=== PATIENT | male | born 1990 | race Caucasian/White ===

== ENCOUNTER 2018-01-24 16:47 | Emergency (ER) | payer OTHER ==
[~2018-01-24] VITALS: Ht 177.8 cm; Wt 77.1 kg
[~2018-01-24 16:47] MED LIST: Bactrim Ds Tab1 EACH PO; CEPH500 PO; Cleocin HCl150 MG PO; Cleocin HCl300 MG PO; HYDACE5 PO; IBUP600 PO; IBUP800 PO; INDO50 PO; Naprosyn500 MG PO; OXYACE5T PO; OXYACE7.5T PO; Percocet 5-3251 EACH PO; Permethrin60 GM TP; SULTRIDS PO; SULTRISS PO; Voltaren100 GM TOP
== END 2018-01-24 17:58 ==
LOC: ER 16:47
DX: R29.898 Other symptoms and signs involving the musculoskeletal system (principal); T43.625A Adverse effect of amphetamines, initial encounter; T50.995A Adverse effect of other drugs, medicaments and biological substances, initial encounter
CPT/HCPCS: 93005; 93010; 99283

== ENCOUNTER 2020-01-23 12:00 | Inpatient (IN) | payer OTHER ==
[~2020-01-23] VITALS: Ht 177.8 cm; Wt 84.2 kg
[2020-01-23 12:40] LABS: BASOPHILS ABSOLUTE AUTO 0.02 K/mm3 (0.00-0.23); BASOPHILS PERCENT AUTO 0 % (0-2); EOSINOPHILS ABSOLUTE AUTO 0.03 K/mm3 (0.00-0.68); EOSINOPHILS PERCENT AUTO 0 % (0-6); Hematocrit 41.1 % (37.0-53.0); Hemoglobin 13.1 g/dL (13.5-17.5); IMMATURE GRAN ABSOLUTE AUTO 0.08 K/mm3 (0.00-0.10); IMMATURE GRAN PERCENT AUTO 1 % (0-1); LYMPHOCYTES ABSOLUTE AUTO 0.59 K/mm3 (0.84-5.20); LYMPHOCYTES PERCENT AUTO 4 % (21-46); MONOCYTES ABSOLUTE AUTO 0.85 K/mm3 (0.16-1.47); MONOCYTES PERCENT AUTO 5 % (4-13); Mean Corpuscular HGB 27.8 pg (26.0-34.0); Mean Corpuscular HGB Conc 31.9 g/dL (31.5-36.5); Mean Corpuscular Volume 87 fL (80-100); NEUTROPHILS ABSOLUTE AUTO 14.42 K/mm3 (1.96-9.15); NEUTROPHILS PERCENT AUTO 90 % (41-73); Platelet Count 180 K/mm3 (150-400); RDW Coefficient Variation 13.3 % (11.7-14.2); RDW Standard Deviation 42.5 fL (35.1-46.3); Red Blood Cell Count 4.72 M/mm3 (4.30-5.90); White Blood Cell Count 15.99 K/mm3 (4.00-11.30)
[2020-01-23 12:55] LABS: Alanine Aminotransfer (ALT/SGP 46 U/L (12-78); Albumin, Blood 3.6 g/dL (3.4-5.0); Albumin/Globulin Ratio 0.8 (0.8-1.8); Alk Phos 99 U/L (50-136); Anion Gap 4 mmol/L (6-16); Aspartate Aminotrans (AST/SGOT 35 U/L (12-37); Bilirubin, Total 0.7 mg/dL (0.1-1.0); Blood Urea Nitrogen 11 mg/dL (8-24); Bun/Creatinine Ratio 15.2 (12.0-20.0); CO2, Blood 24 mmol/L (21-32); Calcium, Blood 8.8 mg/dL (8.5-10.1); Chloride, Blood 103 mmol/L (98-108); Creatinine, Blood 0.73 mg/dL (0.60-1.20); Globulin, Blood 4.4 g/dL (2.2-4.0); Glomerular Filtration Rate >60 (60-); Glucose, Blood 107 mg/dL (70-99); Potassium, Blood 4.2 mmol/L (3.5-5.5); Sodium, Blood 131 mmol/L (136-145)
[2020-01-23] MEDS ORDERED: IBUP200 PO (18:16)
--- NOTE | 2020-01-23 19:24 | NUR ---
PT ARRIVED TO ROOM AT 1810. ADMISSION ASSESSMENT COMPLETED THOUGH ADMISSION HISTORY STILL NEEDS TO BE COMPLETED, ALONG WITH BLOOD CONSENT, INTERNAL AUDIT DIRECTOR NURSE AWARE. PT ORIENTED TO ROOM, EDUCATED ON PT RIGHTS AND RESPONSIBILITIES AND EDUCATED ON RULES FAR OUTSIDE PRIVLEDGES. PT ALSO INSTRUCTED TO NOT TAKE HOME MEDICATIONS OR SUBSTANCES WHILE A PATIENT. PT AGREES. BED IN LOW POSITION, CALL LIGHT WITHIN REACH. REPORT GIVEN TO INTERNAL AUDIT DIRECTOR NURSE WHO ASSUMES CARE AT THIS TIME. IV PATENT AND INFUSING PER EMAR.
--- NOTE | 2020-01-23 23:58 | NUR ---
1924: assumed care of patient, patient was sleeping at the time and during report at bedside. pt resting quietly in no apparent distress. bed low and locked and call louie within reach. 2030: pt found to have a temp 100.8. turned down temp in the room. Pt refuses Tylenol Suppository. Shift assessment completed. Marked reddened area across foot and calf. Also noted scabs on lfa with induration and pus. similar lesions on anterior calf, Top of L foot at base of third toe. back of Left shoulder. Patient refuses to let me look at the wound near his groin. will try again later.
== END 2020-01-23 23:40 | disposition left against medical advice (07) | DRG 872 ==
LOC: ER 12:00 → MEDS 16:12
PROVIDERS: Physician Assistant; ADMIT Hospitalist
DX: A41.9 Sepsis, unspecified organism (principal); L03.116 Cellulitis of left lower limb; F11.10 Opioid abuse, uncomplicated; Z53.29 Procedure and treatment not carried out because of patient's decision for other reasons
CPT/HCPCS: 36415; 80053; 83605; 85025; 96365; 96366; 96367; 99284-25; A9270; J0690; J1885; J3370; J7030

== ENCOUNTER 2020-10-31 09:05 | Emergency (ER) | payer OTHER ==
[~2020-10-31] VITALS: Ht 177.8 cm; Wt 81.7 kg
[~2020-10-31 09:05] MED LIST changes: +IBUP200 PO
[2020-10-31 11:13] LABS: BASOPHILS ABSOLUTE AUTO 0.02 K/mm3 (0.00-0.23); BASOPHILS PERCENT AUTO 0 % (0-2); EOSINOPHILS ABSOLUTE AUTO 0.19 K/mm3 (0.00-0.68); EOSINOPHILS PERCENT AUTO 2 % (0-6); Hemoglobin 10.8 g/dL (13.5-17.5); IMMATURE GRAN ABSOLUTE AUTO 0.03 K/mm3 (0.00-0.10); IMMATURE GRAN PERCENT AUTO 0 % (0-1); LYMPHOCYTES ABSOLUTE AUTO 1.14 K/mm3 (0.84-5.20); LYMPHOCYTES PERCENT AUTO 14 % (21-46); MONOCYTES ABSOLUTE AUTO 0.63 K/mm3 (0.16-1.47); MONOCYTES PERCENT AUTO 8 % (4-13); Mean Corpuscular HGB 27.3 pg (26.0-34.0); Mean Corpuscular HGB Conc 32.7 g/dL (31.5-36.5); Mean Corpuscular Volume 84 fL (80-100); Mean Platelet Volume 9.8 fL (9.1-12.4); NEUTROPHILS ABSOLUTE AUTO 6.27 K/mm3 (1.96-9.15); NEUTROPHILS PERCENT AUTO 76 % (41-73); Platelet Count 273 K/mm3 (150-400); RDW Coefficient Variation 12.4 % (11.7-14.2); RDW Standard Deviation 37.8 fL (35.1-46.3); Red Blood Cell Count 3.95 M/mm3 (4.30-5.90); White Blood Cell Count 8.28 K/mm3 (4.00-11.30)
[2020-10-31 11:27] LABS: Alanine Aminotransfer (ALT/SGP 27 U/L (12-78); Albumin, Blood 2.9 g/dL (3.4-5.0); Albumin/Globulin Ratio 0.6 (0.8-1.8); Alk Phos 93 U/L (50-136); Anion Gap 3 mmol/L (6-16); Aspartate Aminotrans (AST/SGOT 13 U/L (12-37); Bilirubin, Total 0.4 mg/dL (0.1-1.0); Blood Urea Nitrogen 15 mg/dL (8-24); Bun/Creatinine Ratio 16.5 (12.0-20.0); CO2, Blood 29 mmol/L (21-32); Calcium, Blood 8.5 mg/dL (8.5-10.1); Chloride, Blood 108 mmol/L (98-108); Creatinine, Blood 0.91 mg/dL (0.60-1.20); Globulin, Blood 4.7 g/dL (2.2-4.0); Glomerular Filtration Rate >60 (60-); Glucose, Blood 97 mg/dL (70-99); Potassium, Blood 4.2 mmol/L (3.5-5.5); Sodium, Blood 140 mmol/L (136-145); Total Protein, Blood 7.6 g/dL (6.4-8.2)
[2020-10-31 13:47] LABS: Source, Urine Voided
[2020-10-31 13:52] LABS: Appearance, Urine Clear (Clear); Bilirubin, Urine Neg (Neg); Blood, Urine 3+ (Neg); Color, Urine Yellow (P-Yellow); Glucose Qualitative, Urine Neg (Neg); Ketones, Urine Neg (Neg); Leukocyte Esterase, Urine 1+ (Neg); Nitrite, Urine Neg (Neg); Protein, Urine Neg (Neg); Urobilinogen, Urine NORM (Normal)
[2020-10-31 14:06] LABS: Bacteria Few /hpf; Red Blood Cells, Urine 25-50 /hpf (0-2); Squamous Epithelial Cells Not Seen /hpf (Few)
[2020-10-31] MEDS ORDERED: IBUP400 PO (15:44)
== END 2020-10-31 15:55 | disposition home or self-care (01) ==
LOC: ER 09:05
PROVIDERS: Emergency Medicine
DX: M54.5 Low back pain (principal)
CPT/HCPCS: 36415; 72158; 80053; 81001; 83605; 85025; 85651; 87086; 96372-59; 99284-25; A9579; J1885

== ENCOUNTER 2020-11-10 17:38 | Inpatient (IN) | payer OTHER ==
[~2020-11-10] VITALS: Ht 177.8 cm; Wt 88.4 kg
[~2020-11-10 17:38] MED LIST changes: +IBUP400 PO
[2020-11-10 18:59] LABS: Hemoglobin 9.4 g/dL (13.5-17.5); Mean Corpuscular HGB 26.2 pg (26.0-34.0); Mean Corpuscular HGB Conc 32.4 g/dL (31.5-36.5); Mean Corpuscular Volume 81 fL (80-100); Mean Platelet Volume 10.6 fL (9.1-12.4); Platelet Count 101 K/mm3 (150-400); RDW Coefficient Variation 13.3 % (11.7-14.2); RDW Standard Deviation 39.5 fL (35.1-46.3); Red Blood Cell Count 3.59 M/mm3 (4.30-5.90); White Blood Cell Count 13.16 K/mm3 (4.00-11.30)
[2020-11-10 19:19] LABS: BAND PERCENT MAN 7 % (0-8); BASOPHILS PERCENT MAN 0 % (0-2); EOSINOPHILS PERCENT MAN 0 % (0-6); LYMPHOCYTES ABSOLUTE MAN 0.26 K/mm3 (0.84-5.20); LYMPHOCYTES PERCENT MAN 2 % (21-46); MONOCYTES ABSOLUTE MAN 0.13 K/mm3 (0.16-1.47); MONOCYTES PERCENT MAN 1 % (4-13); NEUTROPHILS ABSOLUTE MAN 12.76 K/mm3 (1.96-9.15); SEG NEUTROPHILS PERCENT MAN 90 % (41-73); TOTAL CELLS COUNTED 100
[2020-11-10 19:22] LABS: Alanine Aminotransfer (ALT/SGP 28 U/L (12-78); Albumin, Blood 1.8 g/dL (3.4-5.0); Albumin/Globulin Ratio 0.4 (0.8-1.8); Alk Phos 265 U/L (50-136); Anion Gap 9 mmol/L (6-16); Aspartate Aminotrans (AST/SGOT 30 U/L (12-37); Bilirubin, Total 2.2 mg/dL (0.1-1.0); Blood Urea Nitrogen 28 mg/dL (8-24); Bun/Creatinine Ratio 23.9 (12.0-20.0); CO2, Blood 26 mmol/L (21-32); Calcium, Blood 7.9 mg/dL (8.5-10.1); Chloride, Blood 96 mmol/L (98-108); Creatinine, Blood 1.17 mg/dL (0.60-1.20); Globulin, Blood 4.1 g/dL (2.2-4.0); Glomerular Filtration Rate >60 (60-); Glucose, Blood 115 mg/dL (70-99); Potassium, Blood 2.8 mmol/L (3.5-5.5); Sodium, Blood 131 mmol/L (136-145); Total Protein, Blood 5.9 g/dL (6.4-8.2); Troponin I <0.015 ng/mL (0.000-0.040)
[2020-11-10 19:25] LABS: CPK Creatine Kinase 36 U/L (39-308)
[2020-11-10 19:35] LABS: Influenza A, PCR Negative (NEGATIVE); Influenza B, PCR Negative (NEGATIVE); Resp Syncytial Virus, PCR Negative (NEGATIVE); SARS-Cov-2 (COVID-19) PCR, MMC Negative (NEGATIVE)
[2020-11-10 19:53] LABS: Creatine Kinase MB <1.0 ng/mL (0.0-3.6); Creatine Kinase MB Index Unable to Calculate (0.0-4.0)
[2020-11-10 20:01] LABS: C-REACTIVE PROTEIN, EXT RANGE >19.000 mg/dL (0.000-0.300)
[2020-11-10 20:15] LABS: Source, Urine Clean Catch
[2020-11-10 20:22] LABS: Appearance, Urine Hazy (Clear); Blood, Urine 1+ (Neg); Color, Urine Yellow (P-Yellow); Glucose Qualitative, Urine Neg (Neg); Ketones, Urine Neg (Neg); Leukocyte Esterase, Urine 3+ (Neg); Nitrite, Urine Neg (Neg); Protein, Urine 2+ (Neg); Urobilinogen, Urine 4+ (Normal)
[2020-11-10 20:43] LABS: Bilirubin, Urine 2+ (Neg)
[2020-11-10 20:48] LABS: White Blood Cells, Urine 25-50 /hpf (0-5)
[2020-11-10 20:49] LABS: Bacteria Mod /hpf; Squamous Epithelial Cells Few /hpf (Few)
--- NOTE | 2020-11-10 21:15 | NUR ---
PT ARRIVES TO ICU 13 FROM ED VIA GURNEY. PT ALERT AND ORIENTED. PT PALE AND DIAPHORETIC. PT HAS 20G TO LEFT FA, SL, SITE WNL, DRESSING C/D/I. PT MOVES ALL EXT INDEPENDENTLY, ABLE TO AMB FROM GURNEY TO BED WITHOUT ISSUE. PT PLACED ON CARDIAC/SAT AND NIBP MONITORING. PLAN FOR RUIZ HICKS TO PLACE POWERGLIDE. PT ABD SOFT AND NONTENDER. PT DENIES BM FOR PAST 2 DAYS, STATES ITS NORMAL. PT LUNG SOUNDS CLEAR BUT DIMINISHED, O2 SAT ON RA >92%. HR ST AT 108. PT ORIENTED TO ROOM. CALL LIGHT IN REACH. SEE ADMIT ASSESSMENT.
--- NOTE | 2020-11-11 00:30 | NUR ---
ASSISTED PT TO COMMODE IN ROOM TO HAVE A BOWEL MOVEMENT. PT AMB WITH MINIMAL ASSISTANCE. WHEN PT FINISHED HE WAS ASSISTED BACK TO BED. PT WAS CLUTCHING AN EYEGLASS CASE. THIS RN ASKED IF HE WANTED IT PUT UP WITH OTHER BELONGINGS. PT STATES "I DONT WEAR GLASSES". THIS RN ASKED PT WHAT WAS IN THE EYEGLASS CASE, PT DIDNT ANSWER. PT PALE AND DIAPHORETIC. THIS RN ASKED PT AGAIN, PT STATES "IM NOT GOING TO LIE TO YOU. ITS HEROIN FLUSH". 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 DRUG PARAPHERNALIA REMOVED FROM ROOM. CHARGE NURSE MADE AWARE, SUPERVISOR FUSING ROOM AWARE. SECURITY CALLED TO DISPOSE OF ITEMS. THIS RN SPOKE AT LENGTH WITH PT RE RISK OF BEHAVIOR. PT SEEMS TO UNDERSTAND. PT STATES HE IS CONCERNED ABOUT GOING THROUGH WITHDRAWAL. PT STATES THAT LAST TIME HE WAS IN THE HOSPITAL IT WAS REALLY BAD AND HE LEFT AMA BECAUSE OF THE WITDRAWAL.
--- NOTE | 2020-11-11 00:50 | NUR ---
WENT INTO PT'S ROOM WITH TABLE AND DESK FINISHER. ASKED PT IF HE HAD ANY OTHER DRUGS ON HIM OR WITH HIM, PT STATED "NO". ASKED IF I COULD GO THRU HIS BELONGINGS, PT AGREED. WENT THRU PT'S BELONGINGS WITH NOTHING MORE FOUND. EXPLAINED TO PT THAT BECAUSE OF THIS BEHAVIOR, THAT HE WILL NO LONGER BE ALLOWED TO HAVE VISITORS. PT STATED THAT HE WILL HAVE TO SIGN HIMSELF OUT THEN BECAUSE HE DOES NOT WANT TO GO THRU WITHDRAWLS. I EXPLAINED TO HIM THAT HE'S VERY SICK AND NEEDS TO STAY AND THAT WE COULD HELP HIM SO HE DOESN'T GO THRU WITHDRAWLS. PT AGREED TO STAY.
--- NOTE | 2020-11-11 00:50 | NUR ---
DR CALLES AWARE OF SITUATION AND PT CONCERN FOR WITHDRAWAL. ORDERS RECEIVED FOR ATIVAN AND ZOFRAN.
[2020-11-11 04:14] LABS: Hematocrit 27.1 % (37.0-53.0); Hemoglobin 8.8 g/dL (13.5-17.5); Mean Corpuscular HGB 26.6 pg (26.0-34.0); Mean Corpuscular HGB Conc 32.5 g/dL (31.5-36.5); Mean Corpuscular Volume 82 fL (80-100); Mean Platelet Volume 11.2 fL (9.1-12.4); Platelet Count 67 K/mm3 (150-400); RDW Coefficient Variation 13.5 % (11.7-14.2); RDW Standard Deviation 40.8 fL (35.1-46.3); Red Blood Cell Count 3.31 M/mm3 (4.30-5.90); White Blood Cell Count 11.99 K/mm3 (4.00-11.30)
[2020-11-11 04:30] LABS: Alanine Aminotransfer (ALT/SGP 23 U/L (12-78); Albumin, Blood 1.7 g/dL (3.4-5.0); Albumin/Globulin Ratio 0.5 (0.8-1.8); Alk Phos 237 U/L (50-136); Anion Gap 6 mmol/L (6-16); Aspartate Aminotrans (AST/SGOT 29 U/L (12-37); Bilirubin, Total 2.6 mg/dL (0.1-1.0); Blood Urea Nitrogen 24 mg/dL (8-24); Bun/Creatinine Ratio 25.3 (12.0-20.0); CO2, Blood 27 mmol/L (21-32); Calcium, Blood 7.7 mg/dL (8.5-10.1); Chloride, Blood 106 mmol/L (98-108); Creatinine, Blood 0.95 mg/dL (0.60-1.20); Globulin, Blood 3.3 g/dL (2.2-4.0); Glomerular Filtration Rate >60 (60-); Glucose, Blood 100 mg/dL (70-99); Potassium, Blood 3.6 mmol/L (3.5-5.5); Sodium, Blood 139 mmol/L (136-145)
[2020-11-11 04:50] LABS: BAND PERCENT MAN 14 % (0-8); BASOPHILS PERCENT MAN 0 % (0-2); EOSINOPHILS PERCENT MAN 0 % (0-6); LYMPHOCYTES ABSOLUTE MAN 0.11 K/mm3 (0.84-5.20); LYMPHOCYTES PERCENT MAN 1 % (21-46); MONOCYTES ABSOLUTE MAN 0.59 K/mm3 (0.16-1.47); MONOCYTES PERCENT MAN 5 % (4-13); NEUTROPHILS ABSOLUTE MAN 11.27 K/mm3 (1.96-9.15); SEG NEUTROPHILS PERCENT MAN 80 % (41-73); TOTAL CELLS COUNTED 100
--- NOTE | 2020-11-11 08:09 | NUR ---
ASSUMED CARE BEDSIDE REPORT RECIEVED. PT IS LAYING IN BED. PT AWAKENS EASILY TO VERBAL STIMULI. PT IS ALERT AND ORIENTED. PT IS VERY ANXIOUS, BUT COOPERATIVE. PT COMPLAINS OF PAIN/FATIGUE THROUGHOUT. PT ON 2L O2 NC, PT WITH SHALLOW PANTING RESPIRATIONS. HR 130-150'S, BP STABLE. POWERGLIDE TO MUKESH C/D/I, NS INFUSING TKO WITH ZOSYN. DR JEFFRIES AT BEDSIDE TO SEE PT AT THIS TIME. DISCUSSED PLAN OF CARE AND MEDS. WILL CONTINUE TO MONITOR.
--- NOTE | 2020-11-11 09:06 | NUR ---
Stat echocardiogram performed and Dr. Segovia called prelim. result to Dr. Zhou.
[2020-11-11 09:35] LABS: Fibrinogen 355 mg/dL (170-430)
[2020-11-11 09:39] LABS: D-Dimer, Quantitative >35.20 mg/L FEU (0.00-0.52)
--- NOTE | 2020-11-11 12:30 | NUR ---
UPDATE PT ASSESSMENT REMAINS UNCHANGED AT THIS TIME. VITAL SIGNS STABLE. DR JEFFRIES CALLED TO INFORM OF TRANSFER AND ACCEPTING PHYSICAN AT [facility] IN [place]. PT UNABLE TO ACKNOWLEDGE OR CONSENT TO TRANSFER AT THIS TIME. PT MOTHER KHAI CALLED AND AGREES WITH TRANSFER. AWAITING BED ASSIGNMENT AT THIS TIME. WILL CONTINUE TO MONITOR.
--- NOTE | 2020-11-11 14:37 | NUR ---
TRANSFER REPORT CALLED TO YENY AT [facility]. ALL QUESTIONS ANSWERED. PT TAKEN TO [facility]. PT MOTHER TOOK ALL PT BELONGINGS. VITAL SIGNS STABLE. PT LEFT AT 1435.
== END 2020-11-11 14:35 | disposition short-term general hospital (02) | DRG 871 ==
LOC: ER 17:38 → ICUW 17:39
PROVIDERS: Emergency Medicine; Internal Medicine; ADMIT Internal Medicine
DX: A41.02 Sepsis due to Methicillin resistant Staphylococcus aureus (principal); J96.01 Acute respiratory failure with hypoxia; I26.90 Septic pulmonary embolism without acute cor pulmonale; D69.6 Thrombocytopenia, unspecified; E87.6 Hypokalemia; R82.81 Pyuria; E88.09 Other disorders of plasma-protein metabolism, not elsewhere classified; Z20.828 Contact with and (suspected) exposure to other viral communicable diseases; F11.10 Opioid abuse, uncomplicated; D63.8 Anemia in other chronic diseases classified elsewhere; I37.8 Other nonrheumatic pulmonary valve disorders
CPT/HCPCS: 0241U; 36415; 71045; 73030; 80053; 81001; 82550; 82553; 83605; 83735; 83880; 84484; 85025; 85379; 85384; 85651; 86140; 87040; 87077; 87086; 87147; 87186; 93005; 93010; 93306; 96365; 96367; 99285-25; A9270; C1751; G0378; J0456; J0696; J1650; J2060; J2405; J2543; J3010; J3370; J3480; J7030; J7050; J7120; P9046

== ENCOUNTER 2020-12-03 00:53 | Day surgery (SDC) | payer OTHER ==
[2020-12-04] MEDS ORDERED: DOCU100 PO (11:51)
[2020-12-04] MEDS ORDERED: CUBICIN500 MG IV (11:51)
[2020-12-04] MEDS ORDERED: ASCO500 PO (11:51)
[2020-12-04] MEDS ORDERED: THERA-D2000 UNIT PO (11:51)
[2020-12-04] MEDS ORDERED: FOLI400 PO (11:52)
[2020-12-04] MEDS ORDERED: GUANFACINE HCL2 MG PO (11:52)
[2020-12-04] MEDS ORDERED: MELA3 PO (11:52)
[2020-12-04] MEDS ORDERED: METH10 PO (11:53)
[2020-12-04] MEDS ORDERED: [UNRECOGNIZED DRUG - OTHER] PO (11:54)
[2020-12-04] MEDS ORDERED: TRAZ100 PO (11:54)
== END 2020-12-03 11:30 | disposition home or self-care (01) ==
LOC: ATC 00:53
DX: A41.02 Sepsis due to Methicillin resistant Staphylococcus aureus (principal); I33.0 Acute and subacute infective endocarditis; R65.20 Severe sepsis without septic shock; J96.01 Acute respiratory failure with hypoxia; D64.9 Anemia, unspecified; Z79.2 Long term (current) use of antibiotics; Z79.899 Other long term (current) drug therapy; Z20.822 Contact with and (suspected) exposure to COVID-19
CPT/HCPCS: J0878

== ENCOUNTER 2020-12-05 00:24 | Day surgery (SDC) | payer OTHER ==
[~2020-12-05 00:24] MED LIST changes: +ASCO500 PO; +CUBICIN500 MG IV; +DOCU100 PO; +FOLI400 PO; +GUANFACINE HCL2 MG PO; +MELA3 PO; +METH10 PO; +THERA-D2000 UNIT PO; +TRAZ100 PO; +[UNRECOGNIZED DRUG - OTHER] PO
== END 2020-12-05 10:47 | disposition home or self-care (01) ==
LOC: ATC 00:24
DX: A41.02 Sepsis due to Methicillin resistant Staphylococcus aureus (principal); I33.0 Acute and subacute infective endocarditis; R65.20 Severe sepsis without septic shock; J96.01 Acute respiratory failure with hypoxia; D64.9 Anemia, unspecified; Z79.2 Long term (current) use of antibiotics; Z79.899 Other long term (current) drug therapy; Z20.822 Contact with and (suspected) exposure to COVID-19
CPT/HCPCS: 96365; J0878

== ENCOUNTER 2020-12-06 00:22 | Day surgery (SDC) | payer OTHER | END 2020-12-06 09:47 | disposition home or self-care (01) | LOC: ATC 00:22 | DX: A41.02 Sepsis due to Methicillin resistant Staphylococcus aureus (principal); I33.0 Acute and subacute infective endocarditis; R65.20 Severe sepsis without septic shock; J96.90 Respiratory failure, unspecified, unspecified whether with hypoxia or hypercapnia; D64.9 Anemia, unspecified; B18.2 Chronic viral hepatitis C; F15.10 Other stimulant abuse, uncomplicated; F11.10 Opioid abuse, uncomplicated; Z20.822 Contact with and (suspected) exposure to COVID-19; Z79.2 Long term (current) use of antibiotics; Z79.899 Other long term (current) drug therapy | CPT/HCPCS: 96365; J0878 ==

== ENCOUNTER 2020-12-07 00:12 | Day surgery (SDC) | payer OTHER ==
--- NOTE | 2020-12-07 09:57 | NUR ---
DISCUSSED HIS COUGHING. PT STATES HE COUGHED UP SOME BLOOD STREAKED SPUTUM. PT STATES HE HAD HIS METHADONE THIS AM. WE DISCUSSED WHAT HIS ECHO SAID.
== END 2020-12-07 09:53 | disposition home or self-care (01) ==
LOC: ATC 00:12
DX: I33.0 Acute and subacute infective endocarditis (principal); B95.62 Methicillin resistant Staphylococcus aureus infection as the cause of diseases classified elsewhere; I37.1 Nonrheumatic pulmonary valve insufficiency; F15.10 Other stimulant abuse, uncomplicated; F11.10 Opioid abuse, uncomplicated; B18.2 Chronic viral hepatitis C
CPT/HCPCS: 96365; J0878

== ENCOUNTER 2020-12-08 00:07 | Day surgery (SDC) | payer OTHER ==
[2020-12-08 10:11] LABS: BASOPHILS ABSOLUTE AUTO 0.07 K/mm3 (0.00-0.23); BASOPHILS PERCENT AUTO 1 % (0-2); EOSINOPHILS ABSOLUTE AUTO 0.32 K/mm3 (0.00-0.68); EOSINOPHILS PERCENT AUTO 2 % (0-6); Hematocrit 28.8 % (37.0-53.0); Hemoglobin 8.7 g/dL (13.5-17.5); IMMATURE GRAN ABSOLUTE AUTO 0.15 K/mm3 (0.00-0.10); IMMATURE GRAN PERCENT AUTO 1 % (0-1); LYMPHOCYTES ABSOLUTE AUTO 1.63 K/mm3 (0.84-5.20); LYMPHOCYTES PERCENT AUTO 11 % (21-46); MONOCYTES ABSOLUTE AUTO 0.74 K/mm3 (0.16-1.47); MONOCYTES PERCENT AUTO 5 % (4-13); Mean Corpuscular HGB 25.4 pg (26.0-34.0); Mean Corpuscular HGB Conc 30.2 g/dL (31.5-36.5); Mean Corpuscular Volume 84 fL (80-100); Mean Platelet Volume 10.4 fL (9.1-12.4); NEUTROPHILS ABSOLUTE AUTO 11.98 K/mm3 (1.96-9.15); NEUTROPHILS PERCENT AUTO 81 % (41-73); Platelet Count 448 K/mm3 (150-400); RDW Standard Deviation 44.3 fL (35.1-46.3); Red Blood Cell Count 3.42 M/mm3 (4.30-5.90); White Blood Cell Count 14.89 K/mm3 (4.00-11.30)
[2020-12-08 10:30] LABS: Alanine Aminotransfer (ALT/SGP 70 U/L (12-78); Albumin, Blood 2.4 g/dL (3.4-5.0); Albumin/Globulin Ratio 0.4 (0.8-1.8); Alk Phos 257 U/L (50-136); Anion Gap 7 mmol/L (6-16); Aspartate Aminotrans (AST/SGOT 31 U/L (12-37); Bilirubin, Total 0.4 mg/dL (0.1-1.0); Blood Urea Nitrogen 10 mg/dL (8-24); Bun/Creatinine Ratio 11.4 (12.0-20.0); CO2, Blood 28 mmol/L (21-32); CPK Creatine Kinase 16 U/L (39-308); Calcium, Blood 8.8 mg/dL (8.5-10.1); Chloride, Blood 102 mmol/L (98-108); Creatinine, Blood 0.88 mg/dL (0.60-1.20); Globulin, Blood 6.7 g/dL (2.2-4.0); Glomerular Filtration Rate >60 (60-); Glucose, Blood 100 mg/dL (70-99); Potassium, Blood 4.2 mmol/L (3.5-5.5); Sodium, Blood 137 mmol/L (136-145); Total Protein, Blood 9.1 g/dL (6.4-8.2)
[2020-12-08 10:47] LABS: Creatine Kinase MB <1.0 ng/mL (0.0-3.6); Creatine Kinase MB Index Unable to Calculate (0.0-4.0)
--- NOTE | 2020-12-08 11:25 | NUR ---
Lab results from today faxed to Dr. Davis's office at [phone].
== END 2020-12-08 09:56 | disposition home or self-care (01) ==
LOC: ATC 00:07
PROVIDERS: Internal Medicine Infectious Disease
DX: I33.0 Acute and subacute infective endocarditis (principal); I76 Septic arterial embolism; A41.9 Sepsis, unspecified organism; R65.20 Severe sepsis without septic shock; J96.00 Acute respiratory failure, unspecified whether with hypoxia or hypercapnia; B19.20 Unspecified viral hepatitis C without hepatic coma; F15.10 Other stimulant abuse, uncomplicated
CPT/HCPCS: 80053; 82550; 82553; 85025; 85651; 96365; J0878

== ENCOUNTER 2020-12-09 01:46 | Day surgery (SDC) | payer OTHER ==
--- NOTE | 2020-12-09 13:28 | NUR ---
PT STS HE IS NOT FEELING WELL, ENCOURAGED PT TO GO TO ER IF HE CONTINUES TO FEEL POORLY, PT VERBALIZED THAT HE WOULD.
[2020-12-10] MEDS ORDERED: SULTRIDS PO (10:01)
[2020-12-10] MEDS ORDERED: TESSALON PERLE100 MG PO (10:02)
== END 2020-12-09 11:05 | disposition home or self-care (01) ==
LOC: ATC 01:46
DX: I33.0 Acute and subacute infective endocarditis (principal); I26.90 Septic pulmonary embolism without acute cor pulmonale; B95.62 Methicillin resistant Staphylococcus aureus infection as the cause of diseases classified elsewhere; B19.20 Unspecified viral hepatitis C without hepatic coma; D64.9 Anemia, unspecified; F11.10 Opioid abuse, uncomplicated; F15.10 Other stimulant abuse, uncomplicated
CPT/HCPCS: 96365; J0878

== ENCOUNTER 2020-12-10 00:26 | Day surgery (SDC) | payer OTHER ==
[2020-12-10] MEDS ORDERED: SULTRIDS PO (10:01)
[2020-12-10] MEDS ORDERED: TESSALON PERLE100 MG PO (10:02)
== END 2020-12-10 10:15 | disposition home or self-care (01) ==
LOC: ATC 00:26
DX: I33.0 Acute and subacute infective endocarditis (principal); B95.62 Methicillin resistant Staphylococcus aureus infection as the cause of diseases classified elsewhere; I37.1 Nonrheumatic pulmonary valve insufficiency
CPT/HCPCS: 96365; J0878

== ENCOUNTER 2020-12-11 01:24 | Day surgery (SDC) | payer OTHER ==
[~2020-12-11 01:24] MED LIST changes: +TESSALON PERLE100 MG PO
[2020-12-12] MEDS ORDERED: GUAI600T33 PO (10:30)
== END 2020-12-11 10:55 | disposition home or self-care (01) ==
LOC: ATC 01:24
DX: I33.0 Acute and subacute infective endocarditis (principal); B95.62 Methicillin resistant Staphylococcus aureus infection as the cause of diseases classified elsewhere; F15.10 Other stimulant abuse, uncomplicated; F11.10 Opioid abuse, uncomplicated; B19.20 Unspecified viral hepatitis C without hepatic coma
CPT/HCPCS: 96365; J0878

== ENCOUNTER 2020-12-12 00:12 | Day surgery (SDC) | payer OTHER ==
[2020-12-12] MEDS ORDERED: GUAI600T33 PO (10:30)
--- NOTE | 2020-12-12 10:38 | NUR ---
PT STATES HE HAS BEEN COUGHING UP DISCOLORED MUCOUS IN THE MORNING. PT IS CONCERNED HE NEEDS ABX LONGER THAN END DATE 12/25/20 BUT DOESN'T FOLLOW UP WITH CARDIOLOGY UNTIL JAN 03. ADVISED PT TO CALL PCP TODAY TO DISCUSS SPUTUM. PT GIVEN SPUTUM CUP TO SHOW MD A SAMPLE OF THE SPUTUM COLOR. ALSO ENCOURAGED PT THAT THEY COULD CALL CARDIOLOGY TO DISCUSS CONCERNS WITH ABX STOP DATE. PT'S BP LOW TODAY. PT EDUCATED ON FLUID INTAKE AND SYMPTOMS OF LOW BP. PT GOING TO FOLLOW UP WITH PCP REGARDING BP WELL.
== END 2020-12-12 10:52 | disposition home or self-care (01) ==
LOC: ATC 00:12
DX: I33.0 Acute and subacute infective endocarditis (principal); A49.02 Methicillin resistant Staphylococcus aureus infection, unspecified site; I76 Septic arterial embolism; R65.20 Severe sepsis without septic shock; J96.00 Acute respiratory failure, unspecified whether with hypoxia or hypercapnia; I37.1 Nonrheumatic pulmonary valve insufficiency; D64.9 Anemia, unspecified; F15.10 Other stimulant abuse, uncomplicated; B18.2 Chronic viral hepatitis C
CPT/HCPCS: 96365; J0878

== ENCOUNTER 2020-12-13 00:12 | Day surgery (SDC) | payer OTHER ==
[~2020-12-13 00:12] MED LIST changes: +GUAI600T33 PO
[2020-12-14] MEDS ORDERED: Calcium Carbon500 MG PO (10:24)
[2020-12-14] MEDS ORDERED: GUANFACINE HCL2 MG PO (13:27)
[2020-12-14] MEDS ORDERED: TRAZ100 PO (13:27)
[2020-12-14] MEDS ORDERED: METH40 PO (13:27)
[2020-12-14] MEDS ORDERED: CUBICIN500 MG IV (13:27)
[2020-12-14] MEDS ORDERED: BENZ100A PO (13:28)
[2020-12-14] MEDS ORDERED: SULTRIDS PO (13:28)
== END 2020-12-13 10:48 | disposition home or self-care (01) ==
LOC: ATC 00:12
DX: I33.0 Acute and subacute infective endocarditis (principal); B95.62 Methicillin resistant Staphylococcus aureus infection as the cause of diseases classified elsewhere; Z79.2 Long term (current) use of antibiotics; Z79.899 Other long term (current) drug therapy; Z20.822 Contact with and (suspected) exposure to COVID-19
CPT/HCPCS: 96365; J0878

== ENCOUNTER 2020-12-14 00:25 | Day surgery (SDC) | payer OTHER ==
[2020-12-14] MEDS ORDERED: Calcium Carbon500 MG PO (10:24)
--- NOTE | 2020-12-14 10:26 | NUR ---
PTS PRIMARY CARE DOCTOR INFORMED PT TO GO TO THE ER FOR EVALUATION OF SPUTUM AND A REASSESSMENT OF THE PATIENT DUE TO PCP NOT BEING ABLE TO GET PT INTO THE OFFICE SOON. PT STATES HE WILL GO TO ER AFTER VISIT TODAY. VS WNL TODAY
[2020-12-14] MEDS ORDERED: GUANFACINE HCL2 MG PO (13:27)
[2020-12-14] MEDS ORDERED: METH40 PO (13:27)
[2020-12-14] MEDS ORDERED: CUBICIN500 MG IV (13:27)
[2020-12-14] MEDS ORDERED: TRAZ100 PO (13:27)
[2020-12-14] MEDS ORDERED: SULTRIDS PO (13:28)
[2020-12-14] MEDS ORDERED: BENZ100A PO (13:28)
== END 2020-12-14 10:55 | disposition home or self-care (01) ==
LOC: ATC 00:25
DX: A41.02 Sepsis due to Methicillin resistant Staphylococcus aureus (principal); I33.0 Acute and subacute infective endocarditis; R65.20 Severe sepsis without septic shock; D64.9 Anemia, unspecified; J96.90 Respiratory failure, unspecified, unspecified whether with hypoxia or hypercapnia; Z79.2 Long term (current) use of antibiotics; Z79.899 Other long term (current) drug therapy; Z20.822 Contact with and (suspected) exposure to COVID-19
CPT/HCPCS: 96365; J0878

== ENCOUNTER 2020-12-14 10:58 | Emergency (ER) | payer OTHER ==
[~2020-12-14] VITALS: Ht 177.8 cm; Wt 77.1 kg
[~2020-12-14 10:58] MED LIST changes: +Calcium Carbon500 MG PO
[2020-12-14 12:28] LABS: BASOPHILS ABSOLUTE AUTO 0.04 K/mm3 (0.00-0.23); BASOPHILS PERCENT AUTO 0 % (0-2); EOSINOPHILS PERCENT AUTO 2 % (0-6); Hematocrit 25.5 % (37.0-53.0); Hemoglobin 7.9 g/dL (13.5-17.5); IMMATURE GRAN ABSOLUTE AUTO 0.08 K/mm3 (0.00-0.10); IMMATURE GRAN PERCENT AUTO 1 % (0-1); LYMPHOCYTES ABSOLUTE AUTO 1.56 K/mm3 (0.84-5.20); LYMPHOCYTES PERCENT AUTO 12 % (21-46); MONOCYTES ABSOLUTE AUTO 0.73 K/mm3 (0.16-1.47); MONOCYTES PERCENT AUTO 6 % (4-13); Mean Corpuscular HGB 25.7 pg (26.0-34.0); Mean Corpuscular Volume 83 fL (80-100); Mean Platelet Volume 10.2 fL (9.1-12.4); NEUTROPHILS PERCENT AUTO 80 % (41-73); Platelet Count 350 K/mm3 (150-400); RDW Coefficient Variation 15.4 % (11.7-14.2); Red Blood Cell Count 3.07 M/mm3 (4.30-5.90); White Blood Cell Count 13.31 K/mm3 (4.00-11.30)
[2020-12-14 12:40] LABS: Alanine Aminotransfer (ALT/SGP 37 U/L (12-78); Albumin, Blood 2.3 g/dL (3.4-5.0); Albumin/Globulin Ratio 0.4 (0.8-1.8); Alk Phos 141 U/L (50-136); Anion Gap 7 mmol/L (6-16); Aspartate Aminotrans (AST/SGOT 18 U/L (12-37); Bilirubin, Total 0.3 mg/dL (0.1-1.0); Blood Urea Nitrogen 12 mg/dL (8-24); Bun/Creatinine Ratio 10.5 (12.0-20.0); CO2, Blood 26 mmol/L (21-32); Calcium, Blood 8.7 mg/dL (8.5-10.1); Chloride, Blood 101 mmol/L (98-108); Creatinine, Blood 1.14 mg/dL (0.60-1.20); Globulin, Blood 6.4 g/dL (2.2-4.0); Glomerular Filtration Rate >60 (60-); Glucose, Blood 97 mg/dL (70-99); Potassium, Blood 4.9 mmol/L (3.5-5.5); Sodium, Blood 134 mmol/L (136-145); Total Protein, Blood 8.7 g/dL (6.4-8.2); Troponin I <0.015 ng/mL (0.000-0.040)
[2020-12-14 12:45] LABS: International Normalized Ratio 1.18; Prothrombin Time Results 12.5 Sec (9.7-11.5)
[2020-12-14] MEDS ORDERED: CUBICIN500 MG IV (13:27)
[2020-12-14] MEDS ORDERED: TRAZ100 PO (13:27)
[2020-12-14] MEDS ORDERED: METH40 PO (13:27)
[2020-12-14] MEDS ORDERED: GUANFACINE HCL2 MG PO (13:27)
[2020-12-14] MEDS ORDERED: BENZ100A PO (13:28)
[2020-12-14] MEDS ORDERED: SULTRIDS PO (13:28)
== END 2020-12-14 14:10 | disposition home or self-care (01) ==
LOC: ER 10:58
PROVIDERS: Physician Assistant
DX: R05 Cough (principal); Z79.899 Other long term (current) drug therapy
CPT/HCPCS: 36415; 71045; 80053; 83605; 84484; 85025; 85610; 87040; 87070; 87205; 93005; 93010; 99284-25

== ENCOUNTER 2020-12-15 00:24 | Day surgery (SDC) | payer OTHER ==
[~2020-12-15 00:24] MED LIST changes: +BENZ100A PO; +METH40 PO
[2020-12-15 10:37] LABS: BASOPHILS ABSOLUTE AUTO 0.05 K/mm3 (0.00-0.23); BASOPHILS PERCENT AUTO 0 % (0-2); EOSINOPHILS ABSOLUTE AUTO 0.31 K/mm3 (0.00-0.68); EOSINOPHILS PERCENT AUTO 3 % (0-6); Hematocrit 28.6 % (37.0-53.0); Hemoglobin 8.7 g/dL (13.5-17.5); IMMATURE GRAN ABSOLUTE AUTO 0.06 K/mm3 (0.00-0.10); IMMATURE GRAN PERCENT AUTO 1 % (0-1); LYMPHOCYTES PERCENT AUTO 17 % (21-46); MONOCYTES ABSOLUTE AUTO 0.61 K/mm3 (0.16-1.47); MONOCYTES PERCENT AUTO 5 % (4-13); Mean Corpuscular HGB 25.4 pg (26.0-34.0); Mean Corpuscular HGB Conc 30.4 g/dL (31.5-36.5); Mean Corpuscular Volume 84 fL (80-100); Mean Platelet Volume 10.2 fL (9.1-12.4); NEUTROPHILS ABSOLUTE AUTO 9.04 K/mm3 (1.96-9.15); NEUTROPHILS PERCENT AUTO 75 % (41-73); Platelet Count 374 K/mm3 (150-400); RDW Coefficient Variation 15.5 % (11.7-14.2); RDW Standard Deviation 46.3 fL (35.1-46.3); Red Blood Cell Count 3.42 M/mm3 (4.30-5.90); White Blood Cell Count 12.07 K/mm3 (4.00-11.30)
[2020-12-15 10:58] LABS: Alanine Aminotransfer (ALT/SGP 34 U/L (12-78); Albumin, Blood 2.6 g/dL (3.4-5.0); Albumin/Globulin Ratio 0.4 (0.8-1.8); Alk Phos 138 U/L (50-136); Anion Gap 4 mmol/L (6-16); Aspartate Aminotrans (AST/SGOT 17 U/L (12-37); Bilirubin, Total 0.3 mg/dL (0.1-1.0); Blood Urea Nitrogen 12 mg/dL (8-24); Bun/Creatinine Ratio 10.8 (12.0-20.0); CO2, Blood 28 mmol/L (21-32); CPK Creatine Kinase 24 U/L (39-308); Chloride, Blood 105 mmol/L (98-108); Creatinine, Blood 1.11 mg/dL (0.60-1.20); Globulin, Blood 6.5 g/dL (2.2-4.0); Glomerular Filtration Rate >60 (60-); Glucose, Blood 100 mg/dL (70-99); Potassium, Blood 4.4 mmol/L (3.5-5.5); Sodium, Blood 137 mmol/L (136-145); Total Protein, Blood 9.1 g/dL (6.4-8.2)
[2020-12-15 10:59] LABS: Creatine Kinase MB <1.0 ng/mL (0.0-3.6); Creatine Kinase MB Index Unable to Calculate (0.0-4.0)
== END 2020-12-15 10:37 | disposition home or self-care (01) ==
LOC: ATC 00:24
PROVIDERS: Internal Medicine Infectious Disease
DX: A41.02 Sepsis due to Methicillin resistant Staphylococcus aureus (principal); I33.0 Acute and subacute infective endocarditis; R65.20 Severe sepsis without septic shock; J96.90 Respiratory failure, unspecified, unspecified whether with hypoxia or hypercapnia; D64.9 Anemia, unspecified; Z79.2 Long term (current) use of antibiotics; Z79.899 Other long term (current) drug therapy; Z20.822 Contact with and (suspected) exposure to COVID-19
CPT/HCPCS: 80053; 82550; 82553; 85025; 85651; 86140; 96365; J0878

== ENCOUNTER 2020-12-16 00:19 | Day surgery (SDC) | payer OTHER | END 2020-12-16 10:59 | disposition home or self-care (01) | LOC: ATC 00:19 | DX: I33.0 Acute and subacute infective endocarditis (principal); D64.9 Anemia, unspecified; Z79.2 Long term (current) use of antibiotics; Z79.899 Other long term (current) drug therapy | CPT/HCPCS: 96365; J0878 ==

== ENCOUNTER 2020-12-17 01:21 | Day surgery (SDC) | payer OTHER | END 2020-12-17 11:16 | disposition home or self-care (01) | LOC: ATC 01:21 | DX: I33.0 Acute and subacute infective endocarditis (principal); B95.62 Methicillin resistant Staphylococcus aureus infection as the cause of diseases classified elsewhere; D64.9 Anemia, unspecified; B19.20 Unspecified viral hepatitis C without hepatic coma; F55.3 Abuse of steroids or hormones; F15.10 Other stimulant abuse, uncomplicated; Z95.828 Presence of other vascular implants and grafts | CPT/HCPCS: 96365; J0878 ==

== ENCOUNTER 2020-12-18 00:17 | Day surgery (SDC) | payer OTHER | END 2020-12-18 10:51 | disposition home or self-care (01) | LOC: ATC 00:17 | DX: I33.0 Acute and subacute infective endocarditis (principal); B95.62 Methicillin resistant Staphylococcus aureus infection as the cause of diseases classified elsewhere; I76 Septic arterial embolism; I37.1 Nonrheumatic pulmonary valve insufficiency; R65.20 Severe sepsis without septic shock; J96.00 Acute respiratory failure, unspecified whether with hypoxia or hypercapnia; B19.20 Unspecified viral hepatitis C without hepatic coma; D64.9 Anemia, unspecified; F15.19 Other stimulant abuse with unspecified stimulant-induced disorder | CPT/HCPCS: 96365; J0878 ==

== ENCOUNTER 2020-12-19 00:12 | Day surgery (SDC) | payer OTHER | END 2020-12-19 10:43 | disposition home or self-care (01) | LOC: ATC 00:12 | DX: I33.0 Acute and subacute infective endocarditis (principal); B95.62 Methicillin resistant Staphylococcus aureus infection as the cause of diseases classified elsewhere; I37.1 Nonrheumatic pulmonary valve insufficiency; B18.2 Chronic viral hepatitis C; F15.10 Other stimulant abuse, uncomplicated; F11.10 Opioid abuse, uncomplicated; Z86.711 Personal history of pulmonary embolism; Z87.01 Personal history of pneumonia (recurrent) | CPT/HCPCS: 96365; J0878 ==

== ENCOUNTER 2020-12-20 00:11 | Day surgery (SDC) | payer OTHER | END 2020-12-20 10:58 | disposition home or self-care (01) | LOC: ATC 00:11 | DX: I33.0 Acute and subacute infective endocarditis (principal); B95.62 Methicillin resistant Staphylococcus aureus infection as the cause of diseases classified elsewhere | CPT/HCPCS: 96365; J0878 ==

== ENCOUNTER 2020-12-21 00:07 | Day surgery (SDC) | payer OTHER | END 2020-12-21 10:34 | disposition home or self-care (01) | LOC: ATC 00:07 | DX: I38 Endocarditis, valve unspecified (principal); I26.90 Septic pulmonary embolism without acute cor pulmonale; B95.62 Methicillin resistant Staphylococcus aureus infection as the cause of diseases classified elsewhere; B19.20 Unspecified viral hepatitis C without hepatic coma; D64.9 Anemia, unspecified; F11.10 Opioid abuse, uncomplicated; F15.10 Other stimulant abuse, uncomplicated | CPT/HCPCS: 96365; J0878 ==

== ENCOUNTER 2020-12-22 00:14 | Day surgery (SDC) | payer OTHER ==
[2020-12-22 11:36] LABS: BASOPHILS ABSOLUTE AUTO 0.05 K/mm3 (0.00-0.23); BASOPHILS PERCENT AUTO 0 % (0-2); EOSINOPHILS ABSOLUTE AUTO 0.32 K/mm3 (0.00-0.68); EOSINOPHILS PERCENT AUTO 3 % (0-6); Hematocrit 29.4 % (37.0-53.0); Hemoglobin 8.9 g/dL (13.5-17.5); IMMATURE GRAN ABSOLUTE AUTO 0.05 K/mm3 (0.00-0.10); IMMATURE GRAN PERCENT AUTO 0 % (0-1); LYMPHOCYTES ABSOLUTE AUTO 2.01 K/mm3 (0.84-5.20); LYMPHOCYTES PERCENT AUTO 17 % (21-46); MONOCYTES ABSOLUTE AUTO 0.69 K/mm3 (0.16-1.47); MONOCYTES PERCENT AUTO 6 % (4-13); Mean Corpuscular HGB 25.1 pg (26.0-34.0); Mean Corpuscular HGB Conc 30.3 g/dL (31.5-36.5); Mean Corpuscular Volume 83 fL (80-100); Mean Platelet Volume 10.8 fL (9.1-12.4); NEUTROPHILS ABSOLUTE AUTO 9.01 K/mm3 (1.96-9.15); NEUTROPHILS PERCENT AUTO 74 % (41-73); Platelet Count 298 K/mm3 (150-400); RDW Coefficient Variation 15.3 % (11.7-14.2); RDW Standard Deviation 46.3 fL (35.1-46.3); Red Blood Cell Count 3.55 M/mm3 (4.30-5.90); White Blood Cell Count 12.13 K/mm3 (4.00-11.30)
[2020-12-22 11:57] LABS: Alanine Aminotransfer (ALT/SGP 30 U/L (12-78); Albumin, Blood 2.8 g/dL (3.4-5.0); Albumin/Globulin Ratio 0.4 (0.8-1.8); Alk Phos 108 U/L (50-136); Anion Gap 6 mmol/L (6-16); Aspartate Aminotrans (AST/SGOT 16 U/L (12-37); Bilirubin, Total 0.4 mg/dL (0.1-1.0); Blood Urea Nitrogen 20 mg/dL (8-24); Bun/Creatinine Ratio 18.2 (12.0-20.0); CO2, Blood 26 mmol/L (21-32); CPK Creatine Kinase 30 U/L (39-308); Calcium, Blood 9.3 mg/dL (8.5-10.1); Chloride, Blood 103 mmol/L (98-108); Globulin, Blood 6.4 g/dL (2.2-4.0); Glomerular Filtration Rate >60 (60-); Glucose, Blood 103 mg/dL (70-99); Potassium, Blood 4.6 mmol/L (3.5-5.5); Sodium, Blood 135 mmol/L (136-145); Total Protein, Blood 9.2 g/dL (6.4-8.2)
[2020-12-22 11:58] LABS: Creatine Kinase MB <1.0 ng/mL (0.0-3.6); Creatine Kinase MB Index Unable to Calculate (0.0-4.0)
--- NOTE | 2020-12-22 12:54 | NUR ---
LABS RESULTS FAXED TO DR. GONSALEZ'S OFFICE.
== END 2020-12-22 11:05 | disposition home or self-care (01) ==
LOC: ATC 00:14
PROVIDERS: Internal Medicine Infectious Disease
DX: I33.0 Acute and subacute infective endocarditis (principal); I26.90 Septic pulmonary embolism without acute cor pulmonale; B95.62 Methicillin resistant Staphylococcus aureus infection as the cause of diseases classified elsewhere; B19.20 Unspecified viral hepatitis C without hepatic coma; D64.9 Anemia, unspecified; F11.10 Opioid abuse, uncomplicated; F15.10 Other stimulant abuse, uncomplicated
CPT/HCPCS: 80053; 82550; 82553; 85025; 85651; 86140; 96365; J0878

== ENCOUNTER 2020-12-23 00:11 | Day surgery (SDC) | payer OTHER | END 2020-12-23 11:25 | disposition home or self-care (01) | LOC: ATC 00:11 | DX: I33.0 Acute and subacute infective endocarditis (principal); B95.62 Methicillin resistant Staphylococcus aureus infection as the cause of diseases classified elsewhere | CPT/HCPCS: 96365; J0878 ==

== ENCOUNTER 2020-12-24 03:44 | Day surgery (SDC) | payer OTHER | END 2020-12-24 11:05 | disposition home or self-care (01) | LOC: ATC 03:44 | DX: I33.0 Acute and subacute infective endocarditis (principal); B95.62 Methicillin resistant Staphylococcus aureus infection as the cause of diseases classified elsewhere; I37.1 Nonrheumatic pulmonary valve insufficiency; I26.90 Septic pulmonary embolism without acute cor pulmonale; R65.20 Severe sepsis without septic shock; J96.00 Acute respiratory failure, unspecified whether with hypoxia or hypercapnia; B19.20 Unspecified viral hepatitis C without hepatic coma; D64.9 Anemia, unspecified; J18.9 Pneumonia, unspecified organism; J91.8 Pleural effusion in other conditions classified elsewhere; F15.10 Other stimulant abuse, uncomplicated; F11.10 Opioid abuse, uncomplicated | CPT/HCPCS: 96365; J0878 ==

== ENCOUNTER 2020-12-25 02:22 | Day surgery (SDC) | payer OTHER | END 2020-12-25 10:55 | disposition home or self-care (01) | LOC: ATC 02:22 | DX: I33.0 Acute and subacute infective endocarditis (principal); B95.62 Methicillin resistant Staphylococcus aureus infection as the cause of diseases classified elsewhere; B19.20 Unspecified viral hepatitis C without hepatic coma; D64.9 Anemia, unspecified | CPT/HCPCS: 96365; J0878 ==

== ENCOUNTER 2020-12-26 15:10 | Day surgery (SDC) | payer OTHER ==
[2020-12-27] MEDS ORDERED: ACET500 PO (10:39)
[2020-12-27] MEDS ORDERED: IBUP800 PO (10:39)
== END 2020-12-26 23:45 | disposition home or self-care (01) ==
LOC: ATC 15:10
DX: I33.0 Acute and subacute infective endocarditis (principal); B95.62 Methicillin resistant Staphylococcus aureus infection as the cause of diseases classified elsewhere; B19.20 Unspecified viral hepatitis C without hepatic coma; D64.9 Anemia, unspecified; I37.1 Nonrheumatic pulmonary valve insufficiency
CPT/HCPCS: 96365; J0878

== ENCOUNTER 2020-12-27 00:05 | Day surgery (SDC) | payer OTHER ==
[2020-12-27] MEDS ORDERED: IBUP800 PO (10:39)
[2020-12-27] MEDS ORDERED: ACET500 PO (10:39)
== END 2020-12-27 11:16 | disposition home or self-care (01) ==
LOC: ATC 00:05
DX: I33.0 Acute and subacute infective endocarditis (principal); B95.62 Methicillin resistant Staphylococcus aureus infection as the cause of diseases classified elsewhere; I37.1 Nonrheumatic pulmonary valve insufficiency; B19.20 Unspecified viral hepatitis C without hepatic coma; F15.10 Other stimulant abuse, uncomplicated; F11.10 Opioid abuse, uncomplicated; Z86.711 Personal history of pulmonary embolism; Z79.2 Long term (current) use of antibiotics; Z79.891 Long term (current) use of opiate analgesic
CPT/HCPCS: 96365; J0878

== ENCOUNTER 2020-12-28 00:08 | Day surgery (SDC) | payer OTHER ==
[~2020-12-28 00:08] MED LIST changes: +ACET500 PO
== END 2020-12-28 10:12 | disposition home or self-care (01) ==
LOC: ATC 00:08
DX: I33.0 Acute and subacute infective endocarditis (principal); B95.62 Methicillin resistant Staphylococcus aureus infection as the cause of diseases classified elsewhere; I37.1 Nonrheumatic pulmonary valve insufficiency; F15.10 Other stimulant abuse, uncomplicated; F11.10 Opioid abuse, uncomplicated; B18.2 Chronic viral hepatitis C; Z86.711 Personal history of pulmonary embolism; Z87.01 Personal history of pneumonia (recurrent)
CPT/HCPCS: 93308; 93321; 96365; J0878

== ENCOUNTER 2020-12-29 00:08 | Day surgery (SDC) | payer OTHER ==
[2020-12-29 10:24] LABS: BASOPHILS ABSOLUTE AUTO 0.03 K/mm3 (0.00-0.23); BASOPHILS PERCENT AUTO 0 % (0-2); EOSINOPHILS ABSOLUTE AUTO 0.25 K/mm3 (0.00-0.68); EOSINOPHILS PERCENT AUTO 3 % (0-6); Hematocrit 29.9 % (37.0-53.0); Hemoglobin 9.1 g/dL (13.5-17.5); IMMATURE GRAN ABSOLUTE AUTO 0.02 K/mm3 (0.00-0.10); IMMATURE GRAN PERCENT AUTO 0 % (0-1); LYMPHOCYTES ABSOLUTE AUTO 1.52 K/mm3 (0.84-5.20); LYMPHOCYTES PERCENT AUTO 20 % (21-46); MONOCYTES ABSOLUTE AUTO 0.25 K/mm3 (0.16-1.47); MONOCYTES PERCENT AUTO 3 % (4-13); Mean Corpuscular HGB 25.1 pg (26.0-34.0); Mean Corpuscular HGB Conc 30.4 g/dL (31.5-36.5); Mean Corpuscular Volume 82 fL (80-100); NEUTROPHILS ABSOLUTE AUTO 5.47 K/mm3 (1.96-9.15); NEUTROPHILS PERCENT AUTO 73 % (41-73); Platelet Count 284 K/mm3 (150-400); RDW Coefficient Variation 15.3 % (11.7-14.2); RDW Standard Deviation 45.6 fL (35.1-46.3); Red Blood Cell Count 3.63 M/mm3 (4.30-5.90); White Blood Cell Count 7.54 K/mm3 (4.00-11.30)
[2020-12-29 10:57] LABS: Alanine Aminotransfer (ALT/SGP 18 U/L (12-78); Albumin, Blood 2.9 g/dL (3.4-5.0); Albumin/Globulin Ratio 0.5 (0.8-1.8); Alk Phos 90 U/L (50-136); Anion Gap 6 mmol/L (6-16); Aspartate Aminotrans (AST/SGOT 8 U/L (12-37); Bilirubin, Total 0.3 mg/dL (0.1-1.0); Blood Urea Nitrogen 13 mg/dL (8-24); Bun/Creatinine Ratio 13.4 (12.0-20.0); CO2, Blood 27 mmol/L (21-32); CPK Creatine Kinase 50 U/L (39-308); Calcium, Blood 8.9 mg/dL (8.5-10.1); Chloride, Blood 104 mmol/L (98-108); Creatinine, Blood 0.97 mg/dL (0.60-1.20); Glomerular Filtration Rate >60 (60-); Glucose, Blood 103 mg/dL (70-99); Potassium, Blood 4.2 mmol/L (3.5-5.5); Sodium, Blood 137 mmol/L (136-145); Total Protein, Blood 8.9 g/dL (6.4-8.2)
[2020-12-29 10:58] LABS: Creatine Kinase MB <1.0 ng/mL (0.0-3.6); Creatine Kinase MB Index Unable to Calculate (0.0-4.0)
== END 2020-12-29 10:50 | disposition home or self-care (01) ==
LOC: ATC 00:08
PROVIDERS: Internal Medicine Infectious Disease
DX: I33.0 Acute and subacute infective endocarditis (principal); B95.62 Methicillin resistant Staphylococcus aureus infection as the cause of diseases classified elsewhere; I37.1 Nonrheumatic pulmonary valve insufficiency; B18.2 Chronic viral hepatitis C; F15.10 Other stimulant abuse, uncomplicated; F11.10 Opioid abuse, uncomplicated; Z86.711 Personal history of pulmonary embolism; Z87.01 Personal history of pneumonia (recurrent)
CPT/HCPCS: 80053; 82550; 82553; 85025; 85651; 86140; 96365; J0878

== ENCOUNTER 2020-12-30 01:48 | Day surgery (SDC) | payer OTHER | END 2020-12-30 10:56 | disposition home or self-care (01) | LOC: ATC 01:48 | DX: I33.0 Acute and subacute infective endocarditis (principal); B95.62 Methicillin resistant Staphylococcus aureus infection as the cause of diseases classified elsewhere; I37.1 Nonrheumatic pulmonary valve insufficiency; B18.2 Chronic viral hepatitis C; F15.10 Other stimulant abuse, uncomplicated; F11.10 Opioid abuse, uncomplicated; Z86.711 Personal history of pulmonary embolism | CPT/HCPCS: 96365; J0878 ==

== ENCOUNTER 2020-12-31 01:36 | Day surgery (SDC) | payer OTHER | END 2020-12-31 10:45 | disposition home or self-care (01) | LOC: ATC 01:36 | DX: I33.0 Acute and subacute infective endocarditis (principal); B95.62 Methicillin resistant Staphylococcus aureus infection as the cause of diseases classified elsewhere | CPT/HCPCS: 96365; J0878 ==

== ENCOUNTER 2021-01-01 01:25 | Day surgery (SDC) | payer OTHER | END 2021-01-01 10:56 | disposition home or self-care (01) | LOC: ATC 01:25 | DX: I33.0 Acute and subacute infective endocarditis (principal); B95.62 Methicillin resistant Staphylococcus aureus infection as the cause of diseases classified elsewhere; D64.9 Anemia, unspecified | CPT/HCPCS: 96365; J0878 ==

== ENCOUNTER 2021-01-02 00:25 | Day surgery (SDC) | payer OTHER | END 2021-01-02 17:03 | disposition home or self-care (01) | LOC: ATC 00:25 | DX: I33.0 Acute and subacute infective endocarditis (principal); B95.62 Methicillin resistant Staphylococcus aureus infection as the cause of diseases classified elsewhere; B19.20 Unspecified viral hepatitis C without hepatic coma; I37.1 Nonrheumatic pulmonary valve insufficiency; Z86.711 Personal history of pulmonary embolism | CPT/HCPCS: 96365; J0878 ==

== ENCOUNTER 2021-01-03 00:30 | Day surgery (SDC) | payer OTHER | END 2021-01-03 10:45 | disposition home or self-care (01) | LOC: ATC 00:30 | DX: I33.0 Acute and subacute infective endocarditis (principal); B95.62 Methicillin resistant Staphylococcus aureus infection as the cause of diseases classified elsewhere; I37.1 Nonrheumatic pulmonary valve insufficiency; B18.2 Chronic viral hepatitis C; F15.10 Other stimulant abuse, uncomplicated; F11.10 Opioid abuse, uncomplicated; Z86.711 Personal history of pulmonary embolism; Z87.01 Personal history of pneumonia (recurrent) | CPT/HCPCS: 96365; J0878 ==

== ENCOUNTER 2021-01-04 00:06 | Day surgery (SDC) | payer OTHER ==
--- NOTE | 2021-01-04 11:09 | NUR ---
PT VERY ANXIOUS AND FIDGETING IN CHAIR. C/O RUNNY NOSE. PTS PULSE 147 ON ADMIT. PT STATES HE TOOK 2 CAFFEINE PILLS PRIOR TO COMING TO APPT. I STAYED WITH PT AND JUST LISTENED. HE WAS VERY ANGRY WITH THIS WHOLE PROCESS OF HEALING. HE WAS ANGRY THAT HE HAD TO DO 2 MORE WEEKS OF IV ANTIBIOTICS. HE IS ANGRY THAT HIS CARDIOLIGIST HAS NOT CALLED HIM WITH THE RESULTS OF HIS ECHO. HE IS VERY TEARFULL WHEN TALKING ABOUT HIS GIRLFRIEND HE HAS NOT SEEN IN 2 MONTHS.
== END 2021-01-04 10:52 | disposition home or self-care (01) ==
LOC: ATC 00:06
DX: I33.0 Acute and subacute infective endocarditis (principal); B95.62 Methicillin resistant Staphylococcus aureus infection as the cause of diseases classified elsewhere; I37.1 Nonrheumatic pulmonary valve insufficiency; B19.20 Unspecified viral hepatitis C without hepatic coma; F15.10 Other stimulant abuse, uncomplicated; F11.10 Opioid abuse, uncomplicated; Z86.711 Personal history of pulmonary embolism; Z87.01 Personal history of pneumonia (recurrent); Z79.2 Long term (current) use of antibiotics; Z79.891 Long term (current) use of opiate analgesic
CPT/HCPCS: 96365; J0878

== ENCOUNTER 2021-01-05 00:17 | Day surgery (SDC) | payer OTHER ==
--- NOTE | 2021-01-05 10:18 | NUR ---
PT MORE VERY RESTLESS, CONSTANT MOVEMENT THROUGHOUT APPOINTMENT. PT STATES HE HAS BEEN UNDER ALOT OF STRESS. DENIES ANY DRUG USE.
[2021-01-05 11:45] LABS: BASOPHILS ABSOLUTE AUTO 0.04 K/mm3 (0.00-0.23); BASOPHILS PERCENT AUTO 0 % (0-2); EOSINOPHILS ABSOLUTE AUTO 0.41 K/mm3 (0.00-0.68); EOSINOPHILS PERCENT AUTO 4 % (0-6); Hematocrit 30.4 % (37.0-53.0); Hemoglobin 9.3 g/dL (13.5-17.5); IMMATURE GRAN ABSOLUTE AUTO 0.03 K/mm3 (0.00-0.10); IMMATURE GRAN PERCENT AUTO 0 % (0-1); LYMPHOCYTES PERCENT AUTO 23 % (21-46); MONOCYTES ABSOLUTE AUTO 0.72 K/mm3 (0.16-1.47); MONOCYTES PERCENT AUTO 7 % (4-13); Mean Corpuscular HGB 25.1 pg (26.0-34.0); Mean Corpuscular HGB Conc 30.6 g/dL (31.5-36.5); Mean Corpuscular Volume 82 fL (80-100); Mean Platelet Volume 10.5 fL (9.1-12.4); NEUTROPHILS ABSOLUTE AUTO 6.97 K/mm3 (1.96-9.15); NEUTROPHILS PERCENT AUTO 66 % (41-73); Platelet Count 280 K/mm3 (150-400); RDW Coefficient Variation 16.3 % (11.7-14.2); RDW Standard Deviation 48.3 fL (35.1-46.3); White Blood Cell Count 10.57 K/mm3 (4.00-11.30)
[2021-01-05 12:10] LABS: Alanine Aminotransfer (ALT/SGP 19 U/L (12-78); Albumin, Blood 3.2 g/dL (3.4-5.0); Albumin/Globulin Ratio 0.6 (0.8-1.8); Alk Phos 83 U/L (50-136); Anion Gap 6 mmol/L (6-16); Aspartate Aminotrans (AST/SGOT 15 U/L (12-37); Bilirubin, Total 0.3 mg/dL (0.1-1.0); Blood Urea Nitrogen 26 mg/dL (8-24); Bun/Creatinine Ratio 26.1 (12.0-20.0); CO2, Blood 24 mmol/L (21-32); CPK Creatine Kinase 102 U/L (39-308); Calcium, Blood 8.5 mg/dL (8.5-10.1); Chloride, Blood 107 mmol/L (98-108); Creatine Kinase MB Index 2.9 (0.0-4.0); Globulin, Blood 5.3 g/dL (2.2-4.0); Glomerular Filtration Rate >60 (60-); Glucose, Blood 65 mg/dL (70-99); Potassium, Blood 4.4 mmol/L (3.5-5.5); Sodium, Blood 137 mmol/L (136-145); Total Protein, Blood 8.5 g/dL (6.4-8.2)
--- NOTE | 2021-01-05 16:46 | NUR ---
TODAYS LABS FAXED DR. GONSALEZ.
[2021-01-06] MEDS ORDERED: FERROCITE324 MG (10:37)
== END 2021-01-05 10:17 | disposition home or self-care (01) ==
LOC: ATC 00:17
PROVIDERS: Internal Medicine Infectious Disease
DX: I33.0 Acute and subacute infective endocarditis (principal); B95.62 Methicillin resistant Staphylococcus aureus infection as the cause of diseases classified elsewhere; D64.9 Anemia, unspecified; I37.1 Nonrheumatic pulmonary valve insufficiency; B18.2 Chronic viral hepatitis C; F15.10 Other stimulant abuse, uncomplicated; F11.10 Opioid abuse, uncomplicated; Z86.711 Personal history of pulmonary embolism; Z87.01 Personal history of pneumonia (recurrent)
CPT/HCPCS: 80053; 82550; 82553; 85025; 85651; 86140; 96365; J0878

== ENCOUNTER 2021-01-06 01:54 | Day surgery (SDC) | payer OTHER ==
[2021-01-06] MEDS ORDERED: FERROCITE324 MG (10:37)
== END 2021-01-06 11:00 | disposition home or self-care (01) ==
LOC: ATC 01:54
DX: I33.0 Acute and subacute infective endocarditis (principal); B95.62 Methicillin resistant Staphylococcus aureus infection as the cause of diseases classified elsewhere; B19.20 Unspecified viral hepatitis C without hepatic coma; I37.1 Nonrheumatic pulmonary valve insufficiency
CPT/HCPCS: 96365; J0878

== ENCOUNTER 2021-01-07 00:14 | Day surgery (SDC) | payer OTHER ==
[~2021-01-07 00:14] MED LIST changes: +FERROCITE324 MG
== END 2021-01-07 11:12 | disposition home or self-care (01) ==
LOC: ATC 00:14
DX: I33.0 Acute and subacute infective endocarditis (principal); B95.62 Methicillin resistant Staphylococcus aureus infection as the cause of diseases classified elsewhere
CPT/HCPCS: 96365; J0878

== ENCOUNTER 2021-01-08 00:15 | Day surgery (SDC) | payer OTHER | END 2021-01-08 11:25 | disposition home or self-care (01) | LOC: ATC 00:15 | DX: I33.0 Acute and subacute infective endocarditis (principal); B95.62 Methicillin resistant Staphylococcus aureus infection as the cause of diseases classified elsewhere; I76 Septic arterial embolism; A41.02 Sepsis due to Methicillin resistant Staphylococcus aureus; R65.20 Severe sepsis without septic shock; J96.00 Acute respiratory failure, unspecified whether with hypoxia or hypercapnia; F15.90 Other stimulant use, unspecified, uncomplicated; F11.90 Opioid use, unspecified, uncomplicated; B18.2 Chronic viral hepatitis C; D64.9 Anemia, unspecified | CPT/HCPCS: 96365; J0878 ==

== ENCOUNTER 2022-11-17 13:51 | Emergency (ER) | payer OTHER ==
[~2022-11-17] VITALS: Ht 177.8 cm; Wt 79.4 kg
[2022-11-17 15:25] LABS: Influenza B, PCR NEGATIVE (NEGATIVE); Resp Syncytial Virus, PCR NEGATIVE (NEGATIVE); SARS-Cov-2 (COVID-19) PCR, MMC NEGATIVE (NEGATIVE)
[2022-11-17 16:31] LABS: Influenza A, PCR POSITIVE (NEGATIVE)
[2022-11-17] MEDS ORDERED: ONDA4ODT MM (16:39)
[2022-11-17] MEDS ORDERED: BENZ100A PO (16:39)
== END 2022-11-17 17:00 | disposition home or self-care (01) ==
LOC: ER 13:51
PROVIDERS: Physician Assistant
DX: J10.1 Influenza due to other identified influenza virus with other respiratory manifestations (principal); Z20.822 Contact with and (suspected) exposure to COVID-19
CPT/HCPCS: 0241U

== ENCOUNTER 2023-11-01 18:33 | Emergency (ER) | payer OTHER ==
[~2023-11-01] VITALS: Ht 177.8 cm; Wt 79.4 kg
[~2023-11-01 18:33] MED LIST changes: +ONDA4ODT MM
[2023-11-01] MEDS ORDERED: ALBU90OI INH (21:25)
[2023-11-01 22:00] VITALS: BP 138/89
== END 2023-11-01 22:10 | disposition home or self-care (01) ==
LOC: ER 18:33
DX: J40 Bronchitis, not specified as acute or chronic (principal); Z86.711 Personal history of pulmonary embolism; Z87.01 Personal history of pneumonia (recurrent)
CPT/HCPCS: 71046; 99283-25

== ENCOUNTER 2023-11-26 05:57 | Emergency (ER) | payer OTHER ==
[~2023-11-26] VITALS: Ht 172.7 cm; Wt 81.7 kg
[~2023-11-26 05:57] MED LIST changes: +ALBU90OI INH
[2023-11-26 06:12] VITALS: BP 68/50
[2023-11-26] MEDS ORDERED: NARCAN4 M1 (07:10)
== END 2023-11-26 07:15 | disposition home or self-care (01) ==
LOC: ER 05:57
DX: T50.991A Poisoning by other drugs, medicaments and biological substances, accidental (unintentional), initial encounter (principal); R11.2 Nausea with vomiting, unspecified; R53.83 Other fatigue; F11.20 Opioid dependence, uncomplicated; F15.10 Other stimulant abuse, uncomplicated; Z79.899 Other long term (current) drug therapy
CPT/HCPCS: 93005; 93010; 99284-25; A9270

== ENCOUNTER 2024-02-29 00:12 | Emergency (ER) | payer OTHER ==
[~2024-02-29] VITALS: Ht 177.8 cm; Wt 81.7 kg
[~2024-02-29 00:12] MED LIST changes: +NARCAN4 M1
[2024-02-29] MEDS ORDERED: Doxycycline Hyclate 100 MG TAB PO ONE (00:15)
[2024-02-29] MEDS ORDERED: Vibramycin100 MG PO (00:16)
[2024-02-29 00:26] VITALS: BP 127/92
== END 2024-02-29 00:53 | disposition home or self-care (01) ==
LOC: ER 00:12
DX: Z20.2 Contact with and (suspected) exposure to infections with a predominantly sexual mode of transmission (principal); Z79.899 Other long term (current) drug therapy
CPT/HCPCS: 96372; 99282-25; A9270; J0696

== ENCOUNTER 2024-06-19 21:11 | Emergency (ER) | payer OTHER ==
[~2024-06-19] VITALS: Ht 170.2 cm; Wt 81.7 kg
[~2024-06-19 21:11] MED LIST changes: +Vibramycin100 MG PO
[2024-06-19 22:09] VITALS: BP 131/91
== END 2024-06-19 22:27 | disposition home or self-care (01) ==
LOC: ER 21:11
DX: F11.93 Opioid use, unspecified with withdrawal (principal); Z79.899 Other long term (current) drug therapy
CPT/HCPCS: 99283

== ENCOUNTER 2025-05-25 11:41 | Emergency (ER) | payer OTHER ==
[~2025-05-25] VITALS: Ht 170.2 cm; Wt 81.7 kg
[2025-05-25 12:13] VITALS: BP 147/88
== END 2025-05-25 13:52 | disposition home or self-care (01) ==
LOC: ER 11:41
DX: Z76.0 Encounter for issue of repeat prescription (principal)
CPT/HCPCS: 99281; A9270